=== PATIENT | male | born 1980 | race Caucasian/White ===

== ENCOUNTER 2021-07-02 17:44 | Emergency (ER) | payer BC, SELFPAY ==
[2021-07-02] MEDS ORDERED: ACETAMINOPHEN 325 MG TABLET ONE (19:57)
--- NOTE | 2021-07-02 21:59 | RAD REPORT ---
EXAM DESCRIPTION: RAD - Chest Pa And Lat (2 Views) - 07/02/2021 8:36 pm CLINICAL HISTORY: Cough;Fever COMPARISON: None TECHNIQUE: Frontal and lateral views of the chest were obtained. FINDINGS: The lungs are clear of a mass or focal consolidation. Interstitial markings are mildly pro minent with the baseline unknown. A mild interstitial edema or infiltrate cannot be excluded. Heart size is normal and central vasculature is within normal limits. No pleural effusion or pneumothorax seen. No acute bony finding noted. No aortic abnormality. IMPRESSION: No focal mass consolidation. Baseline examination shows a mildly prominent interstitial pattern. This could be baseline for the pa tient or mild interstitial infiltrate.
[2021-07-02 22:42] LABS: SARS-COV-2 RT PCR NEGATIVE (NEGATIVE)
[2021-07-02] MEDS ORDERED: IPRATROPIUM BROM 0.5MG/2.5ML ONE (23:04)
[2021-07-02] MEDS ORDERED: ALBUTEROL 2.5 MG/3 ML NEB SOL ONE (23:04)
[2021-07-02] MEDS ORDERED: BENZONATATE 100 MG CAP PO ONE (23:25)
[2021-07-02] MEDS ORDERED: AMOX/K CLAV 875 MG TAB ONE (23:25)
[2021-07-02] MEDS ORDERED: AZITHROMYCIN 250 MG TAB ONE (23:25)
--- NOTE | 2021-07-02 23:39 | ER ---
Nurse's Notes [facility] Name: Cosme Hernandez Age: 41 yrs Sex: Male : 1980 Arrival Date: 07/02/2021 Time: 17:49 Bed Treatment Private MD: Diagnosis: Pneumonia in diseases classified elsewhere;Otitis media in diseases classified elsewhere, right ear Presentation: 07/02 19:50 Chief complaint: Patient states: I woke up Tuesday with cough and congestion, my right vc1 ear hurts and my ribs hurt from coughing so much. Coronavirus screen: Vaccine status: Patient reports being unvaccinated. Client denies travel out of the [place] in the last 14 days. chills, congestion, cough unrelated to allergies, fatigue, fever, headache, sore throat. Ebola Screen: No symptoms or risks identified at this time. Initial Sepsis Screen: Does the patient meet any 2 criteria? No. Patient's initial sepsis screen is negative. Does the patient have a suspected source of infection? No. Patient's initial sepsis screen is negative. Risk Assessment: Do you want to hurt yourself or someone else? Patient reports no desire to harm self or others. Onset of symptoms was June 30, 2021. 19:50 Method Of Arrival: Ambulatory vc1 19:50 Acuity: JESSICA 3 vc1 Triage Assessment: 19:58 General: Appears in no apparent distress. uncomfortable, ill, Behavior is calm, vc1 cooperative, appropriate for age. Pain: Complains of pain in right ear. Respiratory: Breath sounds are clear. Screenin:45 Abuse screen: Denies threats or abuse. Nutritional screening: No deficits noted. bb Tuberculosis screening: No symptoms or risk factors identified. Fall Risk None identified. Assessment: 21:45 General: Appears in no apparent distress. uncomfortable, Behavior is calm, cooperative. bb Neuro: Level of Consciousness is awake, alert, obeys commands, Oriented to person, place, time, situation. Cardiovascular: Capillary refill < 3 seconds Patient's skin is warm and dry. Respiratory: Respiratory effort is unlabored, Respiratory pattern is regular. Respiratory: Reports cough that is persistent. GI: No signs and/or symptoms were reported involving the gastrointestinal system. Derm: Skin is pink, warm \T\ dry. Musculoskeletal: Circulation, motion, and sensation intact. 23:18 Reassessment: Patient is alert, oriented x 3, equal unlabored respirations, skin bb warm/dry/pink. family at bedside. 07/03 00:00 Reassessment: Patient is alert, oriented x 3, equal unlabored respirations, skin bb warm/dry/pink. pt verbalized understanding of and agrees to plan of care discharge instructions given pt ambulated with steady gait to exit accompanied by family Patient states feeling better. Patient states symptoms have improved. Vital Signs: 07/02 19:50 BP 137 / 82; Pulse 94; Resp 19; Temp 101.5; Pulse Ox 93% on R/A; Weight 99.34 kg; vc1 Height 5 ft. 8 in. (172.72 cm); Pain 5/10; 07/03 00:00 BP 130 / 69; Pulse 84; Resp 18 S; Temp 99.2(O); Pulse Ox 94% on R/A; bb 07/02 19:50 Body Mass Index 33.30 (99.34 kg, 172.72 cm) vc1 ED Course: 07/02 17:49 Patient arrived in ED. mr 19:53 Triage completed. vc1 20:00 Kang Plummer PA is PHCP. cp 20:00 Marco Cochran MD is Attending Physician. cp 20:35 XRAY Chest Pa And Lat (2 Views) In Process Unspecified. EDMS 21:45 Patient has correct armband on for positive identification. Adult w/ patient. bb 23:16 Pattie Ramirez, RN is Primary Nurse. bb 07/03 00:00 No provider procedures requiring assistance completed. Patient did not have IV access bb during this emergency room visit. Administered Medications: 07/02 19:57 Drug: Tylenol 650 mg Route: PO; vc1 07/03 00:34 Follow up: Response: No adverse reaction; Temperature is decreased bb 07/02 23:00 Not Given (Physician Discretion): Albuterol HFA Inhaler 2 puffs Inhalation once cp 23:16 Drug: Albuterol 2.5 mg Route: Inhalation; bb 07/03 00:34 Follow up: Response: No adverse reaction bb 07/02 23:16 Drug: AtroVENT (ipratropium) Aerosol 0.5 mg Route: Inhalation; bb 07/03 00:34 Follow up: Response: No adverse reaction bb 07/02 23:18 Drug: Zithromax (azithromycin) 500 mg Route: PO; bb 07/03 00:34 Follow up: Response: No adverse reaction bb 07/02 23:18 Drug: Augmentin (Amoxicillin-Clavulanate) 875 mg Route: PO; bb 07/03 00:34 Follow up: Response: No adverse reaction bb 07/02 23:19 Drug: Tessalon Perle (benzonatate) 200 mg Route: PO; bb 07/03 00:34 Follow up: Response: No adverse reaction bb Outcome: 07/02 23:39 Discharge ordered by MD. sloan 07/03 00:00 Discharged to home ambulatory, with family. bb Condition: stable Discharge instructions given to patient, Instructed on discharge instructions, follow up and referral plans. medication usage, Demonstrated understanding of instructions, follow-up care, medications, Prescriptions given X 4. 00:34 Patient left the ED. bb Signatures: Dispatcher [employer] Keeley Valerio Brenda, RN RN Kang Cedillo PA PA cp Calcote, Vanessa, RN RN vc1
--- NOTE | 2021-07-02 23:40 | EDPHYS ---
Physician Documentation [facility] Name: Cosme Hernandez Age: 41 yrs Sex: Male : 1980 Arrival Date: 07/02/2021 Time: 17:49 Bed Treatment Private MD: ED Physician Marco Cochran HPI: 07/02 20:00 This 41 yrs old Male presents to ER via Ambulatory with complaints of Fever, Cough, cp Congestion. 20:00 The patient reports fever, with an emergency department temperature of 101.5 degrees cp Fahrenheit. 20:00 Onset: The symptoms/episode began/occurred 2 day(s) ago. Associated signs and symptoms: cp Pertinent positives: cough, with yellow sputum, chest congestion. Severity of symptoms: in the emergency department the symptoms are unchanged despite home interventions. ROS: 20:05 Constitutional: Positive for body aches, chills, fever. cp 20:05 Eyes: Negative for injury, pain, redness, and discharge. cp 20:05 ENT: Positive for ear pain, rhinorrhea, sore throat, Negative for drainage from ear(s). 20:05 Cardiovascular: Negative for chest pain. 20:05 Respiratory: Positive for cough, with yellow sputum, chest congestion, Negative for wheezing. 20:05 Abdomen/GI: Negative for vomiting, diarrhea, constipation. 20:05 Neuro: Negative for altered mental status, dizziness, headache, weakness. 20:05 All other systems are negative. Exam: 20:10 Constitutional: The patient appears in no acute distress, alert, awake, cp non-diaphoretic, non-toxic, well developed, well nourished. 20:10 Head/Face: Normocephalic, atraumatic. cp 20:10 Eyes: Periorbital structures: appear normal, Conjunctiva: normal, no exudate, no injection, Sclera: no appreciated abnormality, Lids and lashes: appear normal, bilaterally. 20:10 ENT: External ear(s): are unremarkable, Ear canal(s): are normal, clear, TM's: bulging, on the right, erythema, that is moderate, on the right, Examination of the other ear shows no obvious abnormality, Nose: is normal, Mouth: Lips: moist, Oral mucosa: moist, Posterior pharynx: Airway: no evidence of obstruction, patent, Tonsils: no enlargement, no exudate, swelling, is not appreciated, erythema, that is moderate, exudate, is not appreciated. 20:10 Neck: ROM/movement: is normal, is supple, without pain, no range of motions limitations, no meningismus, Lymph nodes: no appreciated lymphadenopathy. 20:10 Chest/axilla: Inspection: normal. 20:10 Cardiovascular: Rate: normal, Rhythm: regular. 20:10 Respiratory: the patient does not display signs of respiratory distress, Respirations: normal, no use of accessory muscles, no retractions, Breath sounds: bronchial sounds, that are mild, are heard diffusely, decreased breath sounds, are not appreciated, stridor, is not appreciated, + upper airway congestion. wheezing: is not appreciated. 20:10 Abdomen/GI: Exam negative for discomfort, distension, guarding, Inspection: abdomen appears normal. 20:10 Neuro: Orientation: to person, place \\T\\ time. Mentation: is normal. Vital Signs: 19:50 BP 137 / 82; Pulse 94; Resp 19; Temp 101.5; Pulse Ox 93% on R/A; Weight 99.34 kg; vc1 Height 5 ft. 8 in. (172.72 cm); Pain /10; 07/03 00:00 BP 130 / 69; Pulse 84; Resp 18 S; Temp 99.2(O); Pulse Ox 94% on R/A; bb 07/02 19:50 Body Mass Index 33.30 (99.34 kg, 172.72 cm) vc1 MDM: 07/02 21:36 Patient medically screened. cp 23:38 Data reviewed: vital signs, nurses notes, lab test result(s), radiologic studies, plain cp films. 23:38 Differential diagnosis: viral Infection, bacterial infection, bronchitis, pneumonia cp meningitis, COVID-19, influenza. Test interpretation: by ED physician or midlevel provider: plain radiologic studies. 23:39 Counseling: I had a detailed discussion with the patient and/or guardian regarding: the cp historical points, exam findings, and any diagnostic results supporting the discharge/admit diagnosis, lab results, radiology results, the need for outpatient follow up, a family practitioner, to return to the emergency department if symptoms worsen or persist or if there are any questions or concerns that arise at home. 23:39 Response to treatment: the patient's symptoms have markedly improved after treatment, cp and as a result, I will discharge patient. ED course: VSS. Patient appears non-toxic and no signs of respiratory distress. Will discharge to home for continued monitoring. Recommend use of pulse oximetry and to return to ED for evaluation worsening symptoms, if oxygen sats are measured below 90% on RA. 07/02 20:53 Order name: Strep cp 07/02 20:53 Order name: COVID-19/FLU A+B (Document "Date of Onset" if Symptomatic); Complete Time: cp 22:51 07/02 20:53 Order name: Group A Streptococcus Rapid Sc; Complete Time: 22:59 EDMS 07/02 22:55 Order name: Throat Culture EDMS 07/02 20:00 Order name: XRAY Chest Pa And Lat (2 Views); Complete Time: 22:11 cp 07/02 22:41 Interpretation: Report reviewed. cp Administered Medications: 19:57 Drug: Tylenol 650 mg Route: PO; vc1 07/03 00:34 Follow up: Response: No adverse reaction; Temperature is decreased bb 07/02 23:00 Not Given (Physician Discretion): Albuterol HFA Inhaler 2 puffs Inhalation once cp 23:16 Drug: Albuterol 2.5 mg Route: Inhalation; 07/03 00:34 Follow up: Response: No adverse reaction 07/02 23:16 Drug: AtroVENT (ipratropium) Aerosol 0.5 mg Route: Inhalation; 07/03 00:34 Follow up: Response: No adverse reaction 07/02 23:18 Drug: Zithromax (azithromycin) 500 mg Route: PO; bb 07/03 00:34 Follow up: Response: No adverse reaction 07/02 23:18 Drug: Augmentin (Amoxicillin-Clavulanate) 875 mg Route: PO; bb 07/03 00:34 Follow up: Response: No adverse reaction 07/02 23:19 Drug: Tessalon Perle (benzonatate) 200 mg Route: PO; 07/03 00:34 Follow up: Response: No adverse reaction Disposition: 02:11 Co-signature as Attending Physician, Marco Cochran MD. pkl Disposition Summary: 07/02/21 23:39 Discharge Ordered Location: Home cp Problem: new cp Symptoms: have improved cp Condition: Stable cp Diagnosis - Pneumonia in diseases classified elsewhere cp - Otitis media in diseases classified elsewhere, right ear cp Followup: cp - With: Private Physician - When: 2 - 3 days - Reason: Recheck today's complaints Discharge Instructions: - Discharge Summary Sheet cp - Otitis Media, Adult cp - Community-Acquired Pneumonia, Adult cp Forms: - Medication Reconciliation Form cp - Thank You Letter cp - Antibiotic Education cp - Prescription Opioid Use cp - Work release form bb Prescriptions: - Augmentin 875-125 mg Oral Tablet - take 1 tablet by ORAL route every 12 hours for 10 days; 20 tablet; Refills: 0, cp Product Selection Permitted - Tessalon Perles 100 mg Oral Capsule - take 2 capsule by ORAL route every 8 hours As needed; 30 capsule; Refills: 0, cp Product Selection Permitted - Albuterol Sulfate 2.5 mg /3 mL (0.083 %) Inhalation Solution for Nebulization - inhale 1 unit by NEBULIZATION route every 8 hours As needed; 1 box; Refills: 0, cp Product Selection Permitted - Zithromax Z-Pascual 250 mg Oral Tablet - take 1 tablet by ORAL route as directed for 5 days Day 1 - take two (2) tablets cp one time. Day 2, 3, 4 , 5 take one (1) tablet once daily.; 6 tablet; Refills: 0, Product Selection Permitted Signatures: Dispatcher [employer] EDMarco Parra MD MD pkl Ballard, Brenda, RN RN bb Agus Sotelo, COMMERCIAL SPECIALIST-C COMMERCIAL SPECIALIST-Cla1 Kang Plummer PA PA cp Calcote, Vanessa, RN RN vc1
[2021-07-03 00:41] VITALS: BP 130/69; TEMP 99.2; O2SAT 94
== END 2021-07-03 00:34 | disposition home or self-care (01) ==
LOC: ER 17:44
DX: J18.9 Pneumonia, unspecified organism (principal); H66.91 Otitis media, unspecified, right ear; Z20.822 Contact with and (suspected) exposure to COVID-19
CPT/HCPCS: 0240U; 71046; 87070; 87081; 99284